=== PATIENT | female | born 1975 ===

== ENCOUNTER 2017-10-18 12:55 | Emergency (ER) | payer MEDICAID, OTHER ==
[2017-10-18 13:08] VITALS: BMI 44.6
[2017-10-18 13:13] VITALS: BP 105/70; PULSE 84; RESP 20; TEMP 99.2; O2SAT 98
--- NOTE | 2017-10-18 13:32 | C.PDOC ---
History Of Present Illness 42 yr old female presents to the ER with complaints of fever, body aches, sore throat, sinus congestion and dry cough for the past 3 days. Patient denies chest pain, SOB, nausea, vomiting, abdominal pain or headache. Time Seen by Provider: 10/18/17 13:23 Chief Complaint (Nursing): Flu-like Symptoms History Per: Patient History/Exam Limitations: no limitations Onset/Duration Of Symptoms: Days (3) Current Symptoms Are (Timing): Still Present Past Medical History Reviewed: Historical Data, Nursing Documentation, Vital Signs Vital Signs: Last Vital Signs Temp 99.2 F 10/18/17 13:08 Pulse 84 10/18/17 13:08 Resp 20 10/18/17 13:08 BP 105/70 10/18/17 13:08 Pulse Ox 98 10/18/17 13:32 - Medical History PMH: Hiatal Hernia - [facility] Procedures INJECT/INFUSE NEC (03/26/14) Family History: States: No Known Family Hx - Social History Hx Alcohol Use: No Hx Substance Use: No - Immunization History Hx Tetanus Toxoid Vaccination: No Hx Influenza Vaccination: No Hx Pneumococcal Vaccination: No Review Of Systems Except As Marked, All Systems Reviewed And Found Negative. Constitutional: Positive for: Fever (subjective), Other ((+) body aches) ENT: Positive for: Throat Pain (sore throat), Other ((+) sinus congestion) Cardiovascular: Negative for: Chest Pain Respiratory: Positive for: Cough (dry). Negative for: Shortness of Breath Gastrointestinal: Negative for: Nausea, Vomiting, Abdominal Pain Neurological: Negative for: Headache Physical Exam - Physical Exam Appears: Non-toxic, No Acute Distress Skin: Warm, Dry, No Rash Head: Normacephalic Eye(s): bilateral: Normal Inspection, PERRL, EOMI Ear(s): Bilateral: Normal Nose: Discharge (rhinorrhea), Other ((+) Sinus congestion) Oral Mucosa: Moist Lips: Normal Appearing Throat: Normal, No Erythema, No Exudate, No Drooling Neck: Normal, Normal ROM, Supple Respiratory: Normal Breath Sounds, No Rales, No Rhonchi, No Stridor, No Wheezing Extremity: Normal ROM, No Swelling Neurological/Psych: Oriented x3, Normal Speech ED Course And Treatment O2 Sat by Pulse Oximetry: 98 (RA) Pulse Ox Interpretation: Normal Medical Decision Making Medical Decision Making: PLAN: * Toradol IM Disposition Counseled Patient/Family Regarding: Diagnosis, Need For Followup, Rx Given - Disposition Referrals: YOUR,PMD [Other] Disposition: HOME/ ROUTINE Disposition Time: 13:31 Condition: IMPROVED Prescriptions: Benzonatate [Tessalon Perles] 200 mg PO TID PRN #15 sgl PRN Reason: Cough Dexamethasone 12 mg PO ONCE #2 tab Ibuprofen [Motrin] 600 mg PO Q6 #30 tab Oseltamivir [Tamiflu] 75 mg PO BID #10 cap Pseudoephedrine HCl [Sudafed 24 Hour] 240 mg PO DAILY PRN #1 unit PRN Reason: Sinus Symptoms Instructions: Influenza (ED), Upper Respiratory Infection (ED) Forms: [employer] (Lithuanian), Work Excuse Print Language: UPPER SORBIAN - Clinical Impression Clinical Impression: Influenza-like illness, URI (upper respiratory infection) - Scribe Statement The provider has reviewed the documentation as recorded by the Raudelibenid Mendoza Provider Attestation: All medical record entries made by the Raudelibe were at my direction and personally dictated by me. I have reviewed the chart and agree that the record accurately reflects my personal performance of the history, physical exam, medical decision making, and the department course for this patient. I have also personally directed, reviewed, and agree with the discharge instructions and disposition.
== END 2017-10-18 13:44 | disposition home or self-care (01) ==
LOC: C.ER 12:55
DX: J11.1 Influenza due to unidentified influenza virus with other respiratory manifestations (principal)
CPT/HCPCS: 96372; 99283; J1885

== ENCOUNTER 2018-02-12 06:03 | Inpatient (IN) | payer MEDICAID, OTHER ==
[2018-02-12] MEDS ORDERED: Propofol 10 mg/ml Inj (20 ML) ONE ×2 (07:26→09:14)
[2018-02-12] MEDS ORDERED: Midazolam 2 MG/2 ML VIAL ONE (07:26)
[2018-02-12] MEDS ORDERED: cefOXitin IV 1 gm in Dextrose 1 GM/50 ML BAG IVPB ONE ×2 (07:36→08:12)
[2018-02-12] MEDS: HYDROmorphone 0.5 mg/0.5 ml ISec IVP PRN ×4 (09:35→10:15)
[2018-02-12] MEDS ORDERED: DiphenhydrAMINE 50 mg/ml Inj IVP STA (10:31)
[2018-02-12] MEDS ORDERED: Oxycodone/Acetaminophen 5/325 mg Tab PO PRN (11:20)
[2018-02-12] MEDS: Simethicone 80 mg Chewtab PO SCH ×3 (13:08→21:49)
--- NOTE | 2018-02-12 16:41 | PCM.SURG1 ---
Surgeon's Initial Post Op Note - Surgeon's Notes Surgeon: dr rocha Editing Internship: dr holden Type of Anesthesia: General LMA Anesthesia Administered By: dr bob Pre-Operative Diagnosis: 42 yr pelvic mass Operative Findings: see the op reort Post-Operative Diagnosis: same Operation Performed: exploratorty left oophrectomy Specimen/Specimens Removed: left ovary Estimated Blood Loss: EBL {In ML}: 100 Blood Products Given: N/A Drains Used: No Drains Post-Op Condition: Good Date of Surgery/Procedure: 02/12/18 Time of Surgery/Procedure: 10:00
[2018-02-12 20:07] LABS: HEMOGLOBIN 12.2 g/dL (11.0-16.0); LYMPH # 1.2 K/uL (1.0-4.3); LYMPH % 6.3 % (20.0-40.0); MEAN CELL VOLUME 84.8 fL (81.0-99.0); MEAN CORPUSCULAR HEMOGLOBIN 27.8 pg (27.0-31.0); MEAN CORPUSCULAR HGB CONC 32.8 g/dL (33.0-37.0); MEAN PLATELET VOLUME 8.3 fL (7.2-11.7); MONO # 0.6 K/uL (0.0-0.8); MONO % 3.2 % (0.0-10.0); NEUT # 17.3 K/uL (1.8-7.0); NEUT % 90.5 % (50.0-75.0); PLATELET COUNT 266 K/uL (130-400); RBC 4.39 Mil/uL (3.80-5.20); RED CELL DISTRIBUTION WIDTH 13.5 % (11.5-14.5); WHITE BLOOD COUNT 19.2 K/uL (4.8-10.8)
[2018-02-12 20:08] LABS: ALB/GLOB RATIO 0.9 (1.0-2.1); ALBUMIN 3.8 g/dL (3.5-5.0); ALT/SGPT 26 U/L (9-52); AMYLASE 54 U/L (30-110); AST/SGOT 23 U/L (14-36); BLOOD UREA NITROGEN 10 mg/dL (7-17); CALCIUM 8.6 mg/dl (8.6-10.4); GFR AFRICAN-AMERICAN > 60; GFR NON-AFRICAN AMERICAN > 60
[2018-02-12 20:38] LABS: HEPATITIS B SURFACE AG Negative (NEGATIVE)
[2018-02-12 20:44] LABS: HEPATITIS A IGM NEGATIVE (NEGATIVE); HEPATITIS B CORE AB NEGATIVE (NEGATIVE)
[2018-02-12 20:55] LABS: HEPATITIS C ANTIBODY NEGATIVE (NEGATIVE)
[2018-02-12] MEDS: Oxycodone/Acetaminophen 5/325 mg Tab PO PRN (20:59)
[2018-02-12 21:09] LABS: LYMPHOCYTE 4 % (20-40); MONOCYTE 3 % (0-10); NEUTROPHIL 93 % (50-75); TOTAL CELLS COUNTED 100
[2018-02-12 21:10] LABS: PLATELET ESTIMATE NORMAL (NORMAL)
[2018-02-13] MEDS: Lactated Ringer's 1,000 ML IV SCH (00:48)
[2018-02-13] MEDS: DiphenhydrAMINE 50 mg/ml Inj IVP PRN ×2 (03:51→09:30)
--- NOTE | 2018-02-13 06:08 | OP ---
PROCEDURE DATE: 02/12/2018 PREOPERATIVE DIAGNOSIS: A 42 years old 3, para 0 with a pelvic mass. POSTOPERATIVE DIAGNOSES: A 42 years old 3, para 0 with a pelvic mass, left ovarian cyst. SURGEON: Lemuel Smalls MD. MACHINE SLAT BASKET MAKER: Dr. Bermeo who was present throughout the surgical exposure, retraction. ANESTHESIA: General anesthesia. ANESTHESIOLOGIST: Dr. Hardin. COMPLICATIONS: None. ESTIMATED BLOOD LOSS: 100 mL. PROCEDURE PERFORMED: Exploratory oophorectomy. DESCRIPTION OF PROCEDURE: After informed consent was obtained, the patient was brought to the operating room, placed on the table where general anesthesia was given. Once the anesthesia was given, the patient was prepped and draped in the normal sterile fashion. Guevara catheter was inserted under sterile condition. About 2 cm above the pubic bone, a skin incision was made with a knife, the subcutaneous tissue was cut with a Bovie. The fascia was then excised on both the sides using curved Claire scissors. site of the umbilicus and then at the site of the rectus muscle. Then the peritoneum was lifted up it was cut with a Metzenbaum scissors and we went into the abdominal cavity. The bowels were packed with a laps were placed. After that, the right ovary was visualized as normal. The left ovary was visualized, there was a cyst involved at about size of 6 cm. The cyst was exteriorized. After putting the device, manipulation. After that, the decision was to do an oophorectomy. Ethicon was used to lift up one side and keep on it, left oophorectomy was done and it was sent to the pathology. and a 3-0 chromic was used for suture. Multiple sutures were placed, interrupted sutures were placed. After the irrigation was done, it was found to be hemostatic. FloSeal was placed. After that, all the laps were removed. Peritoneum was closed using 2-0 Vicryl in interlocking fashion. The muscle was closed using 2-0 Vicryl in a interlocking fashion. The fascia was closed Vicryl in interlocking fashion. Skin was closed using 3-0 Monocryl straight needle. The patient tolerated the procedure well. Lap, sponge and instrument counts were correct x2. Lemuel Smalls MD
--- NOTE | 2018-02-13 06:49 | CP.PCM.PN ---
Subjective - Date & Time of Evaluation Date of Evaluation: 02/13/18 Time of Evaluation: 07:00 - Subjective Subjective: pt was seen at bed side, poain is ok,no n/v, tolerating liqui deit. abd dressing clean and dry ext mild edema Objective - Vital Signs/Intake and Output Vital Signs (last 24 hours): Temp Pulse Resp BP Pulse Ox 99.5 F 80 20 100/62 97 02/13/18 00:00 02/13/18 00:00 02/13/18 00:00 02/13/18 00:00 02/13/18 00:00 Intake and Output: 02/12/18 02/13/18 18:59 06:59 Intake Total 2000 200 Output Total 225 400 Balance 1775 -200 - Medications Medications: Current Medications Bisacodyl (Dulcolax) 10 mg PO ONCE ONE Stop: 02/13/18 11:23 Diphenhydramine HCl (Benadryl) 25 mg IVP Q6 PRN PRN Reason: Itching / Pruritus Last Admin: 02/13/18 03:51 Dose: 25 mg Docusate Sodium (Colace) 100 mg PO BID [facility] Last Admin: 02/12/18 17:09 Dose: 100 mg Hydromorphone/Sodium Chloride (Dilaudid Duplicator Punch Set Up Operator) 4 mg IV Q4H PRN; Protocol PRN Reason: Pain, moderate (4-7) Lactated Ringer's (Lactated Ringer's) 1,000 mls @ 100 mls/hr IV .Q10H [facility] Last Admin: 02/13/18 00:48 Dose: 100 mls/hr Ibuprofen (Motrin Tab) 600 mg PO Q6H PRN PRN Reason: Pain, Mild (1-3) Oxycodone/Acetaminophen (Percocet 5/325 Mg Tab) 2 tab PO Q4H PRN PRN Reason: Pain, severe (8-10) Stop: 02/15/18 11:21 Oxycodone/Acetaminophen (Percocet 5/325 Mg Tab) 1 tab PO Q4H PRN PRN Reason: Pain, moderate (4-7) Stop: 02/15/18 11:21 Last Admin: 02/12/18 20:59 Dose: 1 tab Simethicone (Mylicon Chew Tab) 80 mg PO QID [facility] Last Admin: 02/12/18 21:49 Dose: 80 mg - Labs Labs: 02/12/18 20:10 02/12/18 19:46 Assessment and Plan - Assessment and Plan (Free Text) Assessment: 42 yr s/p ex lap leftoophrectomy Plan: plan dc billet straightener pump encourage reg deit encoureage ambultion cnt pain mna cobt post op care
[2018-02-13 07:20] LABS: BASO % 0.1 % (0.0-2.0); EOS % 0.1 % (0.0-4.0); HEMOGLOBIN 11.9 g/dL (11.0-16.0); LYMPH # 3.3 K/uL (1.0-4.3); LYMPH % 19.8 % (20.0-40.0); MEAN CORPUSCULAR HEMOGLOBIN 27.8 pg (27.0-31.0); MEAN CORPUSCULAR HGB CONC 33.5 g/dL (33.0-37.0); MEAN PLATELET VOLUME 8.4 fL (7.2-11.7); MONO # 1.2 K/uL (0.0-0.8); MONO % 7.3 % (0.0-10.0); NEUT # 12.3 K/uL (1.8-7.0); NEUT % 72.7 % (50.0-75.0); RBC 4.29 Mil/uL (3.80-5.20); RED CELL DISTRIBUTION WIDTH 13.8 % (11.5-14.5); WHITE BLOOD COUNT 16.8 K/uL (4.8-10.8)
[2018-02-13 07:28] LABS: ALBUMIN 4.2 g/dL (3.5-5.0); ALT/SGPT 26 U/L (9-52); AST/SGOT 24 U/L (14-36); BLOOD UREA NITROGEN 9 mg/dL (7-17); CALCIUM 8.7 mg/dl (8.6-10.4); GFR AFRICAN-AMERICAN > 60; GFR NON-AFRICAN AMERICAN > 60
[2018-02-13] MEDS ORDERED: Propofol 10 mg/ml Inj (20 ML) ONE (07:29)
[2018-02-13] MEDS ORDERED: Midazolam 2 MG/2 ML VIAL ONE (07:30)
[2018-02-13] MEDS: Simethicone 80 mg Chewtab PO SCH ×4 (09:29→22:25)
[2018-02-13] MEDS ORDERED: Bisacodyl 5mg EC Tab PO ONE ×2 (10:00→11:22)
[2018-02-13] MEDS: Oxycodone/Acetaminophen 5/325 mg Tab PO PRN (12:14)
[2018-02-13 16:25] VITALS: RESP 20
[2018-02-14] MEDS: Lactated Ringer's 1,000 ML IV SCH (04:15)
[2018-02-14] MEDS: Simethicone 80 mg Chewtab PO SCH ×4 (09:54→21:38)
[2018-02-14] MEDS: Oxycodone/Acetaminophen 5/325 mg Tab PO PRN (14:15)
--- NOTE | 2018-02-15 07:51 | CP.PCM.PN ---
Subjective - Date & Time of Evaluation Date of Evaluation: 02/15/18 Time of Evaluation: 09:00 - Subjective Subjective: pt was seenat be expediter service order, pain under control,no n/v, tolerating dir, voiding, no vb , flatus+ abd soft, non tender incision clean and dry ext no edema,no calf ten Objective - Vital Signs/Intake and Output Vital Signs (last 24 hours): Temp Pulse Resp BP Pulse Ox 98.2 F 82 20 109/72 96 02/15/18 00:00 02/15/18 00:00 02/15/18 00:00 02/15/18 00:00 02/14/18 18:00 - Medications Medications: Current Medications Diphenhydramine HCl (Benadryl) 25 mg IVP Q6 PRN PRN Reason: Itching / Pruritus Last Admin: 02/13/18 09:30 Dose: 25 mg Docusate Sodium (Colace) 100 mg PO BID [facility] Last Admin: 02/14/18 20:10 Dose: Not Given Hydromorphone/Sodium Chloride (Dilaudid Robotics Software Engineer) 4 mg IV Q4H PRN; Protocol PRN Reason: Pain, moderate (4-7) Ibuprofen (Motrin Tab) 600 mg PO Q6H PRN PRN Reason: Pain, Mild (1-3) Ondansetron HCl (Zofran Inj) 4 mg IVP Q6H PRN PRN Reason: Nausea/Vomiting Last Admin: 02/13/18 09:34 Dose: 4 mg Oxycodone/Acetaminophen (Percocet 5/325 Mg Tab) 2 tab PO Q4H PRN PRN Reason: Pain, severe (8-10) Stop: 02/15/18 11:21 Last Admin: 02/13/18 22:24 Dose: 2 tab Oxycodone/Acetaminophen (Percocet 5/325 Mg Tab) 1 tab PO Q4H PRN PRN Reason: Pain, moderate (4-7) Stop: 02/15/18 11:21 Last Admin: 02/14/18 14:15 Dose: 1 tab Simethicone (Mylicon Chew Tab) 80 mg PO QID [facility] Last Admin: 02/14/18 21:38 Dose: 80 mg - Labs Labs: 02/13/18 07:08 02/13/18 07:08 Assessment and Plan - Assessment and Plan (Free Text) Assessment: 42 yr with ex laop left oophrectomy Plan: plan dc home no sex' percocet prn f/u in 10 day
--- NOTE | 2018-02-15 07:53 | CP.PCM.DIS ---
Provider - Provider Date of Admission: 02/12/18 12:12 Attending physician: Lemuel Smalls MD Time Spent in preparation of Discharge (in minutes): 20 Diagnosis - Discharge Diagnosis (1) Pelvic mass Status: Acute (2) S/P exploratory laparotomy Status: Acute (3) S/P left oophorectomy Status: Acute Hospital Course - Lab Results Lab Results: Most Recent Lab Values WBC 16.8 K/uL (4.8-10.8) H 02/13/18 07:08 RBC 4.29 Mil/uL (3.80-5.20) 02/13/18 07:08 Hgb 11.9 g/dL (11.0-16.0) 02/13/18 07:08 Hct 35.6 % (34.0-47.0) 02/13/18 07:08 MCV 83.0 fL (81.0-99.0) 02/13/18 07:08 MCH 27.8 pg (27.0-31.0) 02/13/18 07:08 MCHC 33.5 g/dL (33.0-37.0) 02/13/18 07:08 RDW 13.8 % (11.5-14.5) 02/13/18 07:08 Plt Count 273 K/uL (130-400) 02/13/18 07:08 MPV 8.4 fL (7.2-11.7) 02/13/18 07:08 Neut % (Auto) 72.7 % (50.0-75.0) 02/13/18 07:08 Lymph % (Auto) 19.8 % (20.0-40.0) L 02/13/18 07:08 [place] % (Auto) 7.3 % (0.0-10.0) 02/13/18 07:08 Eos % (Auto) 0.1 % (0.0-4.0) 02/13/18 07:08 Baso % (Auto) 0.1 % (0.0-2.0) 02/13/18 07:08 Neut # (Auto) 12.3 K/uL (1.8-7.0) H 02/13/18 07:08 Lymph # (Auto) 3.3 K/uL (1.0-4.3) 02/13/18 07:08 [place] # (Auto) 1.2 K/uL (0.0-0.8) H 02/13/18 07:08 Eos # (Auto) 0.0 K/uL (0.0-0.7) 02/13/18 07:08 Baso # (Auto) 0.0 K/uL (0.0-0.2) 02/13/18 07:08 Neutrophils % (Manual) 93 % (50-75) H 02/12/18 20:10 Lymphocytes % (Manual) 4 % (20-40) L 02/12/18 20:10 Monocytes % (Manual) 3 % (0-10) 02/12/18 20:10 Platelet Estimate Normal (NORMAL) 02/12/18 20:10 RBC Morphology Normal 02/12/18 20:10 Sodium 138 mmol/L (132-148) 02/13/18 07:08 Potassium 4.5 mmol/L (3.6-5.2) 02/13/18 07:08 Chloride 100 mmol/L (98-107) 02/13/18 07:08 Carbon Dioxide 27 mmol/L (22-30) 02/13/18 07:08 Anion Gap 15 (10-20) 02/13/18 07:08 BUN 9 mg/dL (7-17) 02/13/18 07:08 Creatinine 0.6 mg/dL (0.7-1.2) L 02/13/18 07:08 Est GFR ( Amer) > 60 02/13/18 07:08 Est GFR (Non-Af Amer) > 60 02/13/18 07:08 Random Glucose 123 mg/dL (65-105) H 02/13/18 07:08 Calcium 8.7 mg/dl (8.6-10.4) 02/13/18 07:08 Total Bilirubin 0.8 mg/dL (0.2-1.3) 02/13/18 07:08 AST 24 U/L (14-36) 02/13/18 07:08 ALT 26 U/L (9-52) 02/13/18 07:08 Alkaline Phosphatase 112 U/L (38-126) 02/13/18 07:08 Total Protein 8.3 g/dL (6.3-8.3) 02/13/18 07:08 Albumin 4.2 g/dL (3.5-5.0) 02/13/18 07:08 Globulin 4.1 gm/dL (2.2-3.9) H 02/13/18 07:08 Albumin/Globulin Ratio 1.0 (1.0-2.1) 02/13/18 07:08 Amylase 54 U/L (30-110) 02/12/18 19:46 RPR Nonreactive (NONREACTIVE) 02/12/18 19:46 Hepatitis A IgM Ab Negative (NEGATIVE) 02/12/18 19:46 Hep Bs Antigen Negative (NEGATIVE) 02/12/18 19:46 Hep Bs Antibody No result (NEGATIVE) 02/12/18 19:46 Hep B Core IgM Ab Negative (NEGATIVE) 02/12/18 19:46 Hepatitis C Antibody Negative (NEGATIVE) 02/12/18 19:46 HIV 1&2 Antibody Screen Negative (NEGATIVE) 02/12/18 19:46 Blood Type B POSITIVE 02/12/18 07:29 Antibody Screen Negative 02/12/18 07:29 Discharge Plan - Follow Up Plan Condition: GOOD Disposition: HOME/ ROUTINE
[2018-02-15 08:19] VITALS: BP 120/80; PULSE 87; TEMP 98.5; O2SAT 99
[2018-02-15] MEDS: Simethicone 80 mg Chewtab PO SCH (09:40)
== END 2018-02-15 09:57 | disposition home or self-care (01) | DRG 359 ==
LOC: C.SDS 06:03 → C.4M 12:12
PROVIDERS: ADMIT Obstetrics & Gynecology; ATTEND Obstetrics & Gynecology
PROC: 0UB10ZZ Excision of Left Ovary, Open Approach (ICD-10-PCS; 2018-02-12)
PROC: 0UT10ZZ Resection of Left Ovary, Open Approach (ICD-10-PCS; principal; 2018-02-12 07:45)
DX: D27.1 Benign neoplasm of left ovary (principal); N83.202 Unspecified ovarian cyst, left side